=== PATIENT | female | born 1965 | race Caucasian/White ===

== ENCOUNTER 2017-06-30 22:00 | Emergency (ER) | payer OTHER ==
--- NOTE | 2017-06-30 23:20 | EDM.PDOC ---
[id number]: dysuria, hematuria Time Seen by Provider: 06/30/17 22:09 Source of Information: Reports: Patient History Limitations: Reports: No Limitations - History of Present Illness Onset: Today, Sudden Onset Date: 06/30/17 Onset Time: 18:00 Duration: Hour(s):, Getting Worse Location: Reports: Abdomen Quality: Reports: Ache, Burning, Dull, Pressure Severity: Moderate Improves with: Reports: None Worsens with: Reports: None Associated Symptoms: Reports: No Other Symptoms. Denies: Diaphoresis, Fever/ Chills, Nausea/Vomiting low abdomen Pain Score (Numeric/FACES): 2 - Related Data Allergies Allergy/AdvReac Type Severity Reaction Status Date / Time tetracycline Allergy Rash Verified 06/30/17 22:36 Home Meds: Home Meds . [Unable to Verify Home Med List] 06/30/17 [History] ED ROS GENERAL - Review of Systems Review Of Systems: See Below Constitutional: Reports: No Symptoms HEENT: Reports: No Symptoms Respiratory: Reports: No Symptoms Cardiovascular: Reports: No Symptoms Endocrine: Reports: No Symptoms GI/Abdominal: Reports: No Symptoms : Reports: Dysuria, Frequency, Hematuria, Urgency. Denies: Flank Pain, Incontinence Musculoskeletal: Reports: No Symptoms Skin: Reports: No Symptoms Neurological: Reports: No Symptoms Psychiatric: Reports: No Symptoms Hematologic/Lymphatic: Reports: No Symptoms Immunologic: Reports: No Symptoms ED EXAM, RENAL/ - Physical Exam Exam: See Below Exam Limited By: No Limitations General Appearance: Alert, WD/WN, No Apparent Distress Eye Exam: Bilateral Eye: EOMI, PERRL Ears: Normal External Exam, Normal Canal, Hearing Grossly Normal, Normal TMs Nose: Normal Inspection, Normal Mucosa, No Blood Throat/Mouth: Normal Inspection, Normal Lips, Normal Teeth, Normal Gums, Normal Oropharynx, Normal Voice, No Airway Compromise Head: Atraumatic, Normocephalic Neck: Normal Inspection, Supple, Non-Tender, Full Range of Motion Respiratory/Chest: No Respiratory Distress, Lungs Clear, Normal Breath Sounds, No Accessory Muscle Use, Chest Non-Tender Cardiovascular: Normal Peripheral Pulses, Regular Rate, Rhythm, No Edema, No Gallop, No JVD, No Murmur, No Rub GI/Abdominal: Normal Bowel Sounds, Soft, No Organomegaly, No Distention, Other ( tender with palpation in suprapubic area). No: Guarding, Rigid, Rebound (Female) Exam: Deferred Rectal (Female) Exam: Deferred Back Exam: Normal Inspection, Full Range of Motion. No: CVA Tenderness (L), CVA Tenderness (R) Extremities: Normal Inspection, Normal Range of Motion, Non-Tender, Normal Capillary Refill, No Pedal Edema Neurological: Alert, Oriented, CN II-XII Intact, Normal Cognition, Normal Gait, Normal Reflexes, No Motor/Sensory Deficits Psychiatric: Normal Affect, Normal Mood Skin Exam: Warm, Dry, Intact, Normal Color, No Rash Lymphatic: No Adenopathy Course - Vital Signs Last Recorded V/S: Last Vital Signs Temp 36.2 C 06/30/17 22:10 Pulse 83 06/30/17 22:10 Resp 16 06/30/17 22:10 BP 127/83 06/30/17 22:10 Pulse Ox - Orders/Labs/Meds Labs: Laboratory Tests 06/30/17 Range/Units 22:20 Urine Color Corazon H (YELLOW) Urine Appearance Turbid H (CLEAR) Urine pH 6.0 (5.0-8.0) Ur Specific [place] 1.025 Urine Protein 30 H (NEGATIVE) mg/dL Urine Glucose (UA) Negative (NEGATIVE) mg/dL Urine Ketones Negative (NEGATIVE) mg/dL Urine Occult Blood Large H (NEGATIVE) Urine Nitrite Negative (NEGATIVE) Urine Bilirubin Negative (NEGATIVE) Urine Urobilinogen 0.2 (0.2) EU/dL Ur Leukocyte Esterase Small H (NEGATIVE) Urine RBC Semi-packed (NOT SEEN) /HPF Urine Red Cell Clumps Present Urine WBC 10-20 H (NOT SEEN) /HPF Urine WBC Clumps Few Ur Squamous Epith Cells Few H (NEGATIVE) /HPF Ur Transition Epith Cell Few H (NEGATIVE) /HPF Ur Renal Epithelial Cell Rare H (NEGATIVE) /HPF Amorphous Sediment Few Urine Bacteria Many H (NEGATIVE) /HPF Urine Mucus Moderate H (NEGATIVE) /LPF Meds: Medications Discontinued Medications Generic Name Dose Route Start Last Admin Trade Name Freq PRN Reason Stop Dose Admin Trimethoprim/Sulfamethoxazole 2 packet 07/01/17 00:38 Take Home: Sulfameth/Trimet 800-160mg, 2 Pack PO 07/01/17 00:39 ONETIME ONE - Re-Assessments/Exams Free Text/Narrative Re-Assessment/Exam: 07/01/17 Patient evaluated and labs and diagnostics done and reviewed with patient. Discharge instructions reviewed and patient voiced understanding. Given starte pack of four bactrim tablets and prescription to fill for the rest on Sunday. Departure - Departure Time of Disposition: 00:45 Disposition: Home, Self-Care 01 Condition: Good Clinical Impression: UTI, Urinary tract infectious disease - Discharge Information Instructions: Urinary Tract Infection, Adult, [id number] Referrals: PCP,None [Primary Care Provider] - Forms: ED Department Discharge Additional Instructions: Take antibiotic twice daily for 7 days. Drink plenty of liquids. Follow up with your PCP if symptoms worsen or fail to improve
[2017-07-01] MEDS ORDERED: Take Home: Sulfamethoxazole/Trimethoprim 800-160 MG Tab, 2 Tab Pack PO ONE (00:38)
== END 2017-07-01 00:45 | disposition home or self-care (01) ==
LOC: VM.ED 22:00
DX: N39.0 Urinary tract infection, site not specified (principal); Z88.1 Allergy status to other antibiotic agents
CPT/HCPCS: 81001; 99283; A9270